=== PATIENT | female | born 1950 | race African-American/Black ===

== ENCOUNTER → 2018-02-03 | Outpatient (CLI) | payer OTHER ==
[~2018-02-03] MED LIST: ALLERGY10 M1 PO; AMARYL2 MG PO; ASPIRIN325 PO; CELEXA20 MG PO; CIPRO500 MG PO; COLACE100 MG PO; COLLAGEN SUPPLEMENT PO; COREG25 MG PO; COZAAR 50 MG TA50 M2 PO; HYDROCODON-ACE1 EAC5 PO; KLOR-CON SPRIN10 MEQ PO; LASIX 20 MG TAB20 MG PO; METFORMIN HCL500 MG PO; MILK OF MA2400 MG/10 PO; MOBIC15 MG PO; NAPROSYN500 MG PO; NEPHROCAPS SOFT1 CAP PO; NEURONTIN 300300 M1 PO; OXYCODONE HCL 55 MG PO; PERCOCET PO; SYNTHROID137 MC1 PO; XARELTO10 MG PO; ZANAFLEX4 MG PO
--- NOTE | 2018-03-04 13:42 | PAINCON ---
[address] [address] PAIN MANAGEMENT CONSULTATION Name: BOB BLAIR [id number] Admission: 02/03/18 Attend Phys: Mercedes Pino MD Discharge: Date of : 54 Report #: [id number] THIS REPORT FOR: //name// CC: SHIVA CHURCHILL DO Shiva Pino DATE OF SERVICE: 02/03/2018 CHIEF COMPLAINT: Chronic knee pains, left and right. FOLLOWUP HISTORY: The patient is a 67-year-old female who has been referred to the pain clinic for evaluation of chronic pain involving her knees. The patient states that she did have a right knee surgery. She notes that she has changed her gait as a result of that. She feels that she is putting more weight on the left side. She notes that because of this, she is having left hip pain and still has pain and discomfort on the right side in spite of the past surgical intervention. She notes that movements exacerbate the pain. Remaining in 1 position too long can be problematic as well. She notes that rest can be helpful in regards to the pain. The patient does have a history of diabetes. She has had a gastric bypass. ALLERGIES: No known drug allergies. CURRENT MEDICATIONS: Metformin 1000 mg b.i.d., gabapentin 300 mg at bedtime, glimepiride 2 mg at bedtime, citalopram 20 mg, losartan 50 mg b.i.d., Coreg 25 mg b.i.d., levothyroxine 137 mcg q.a.m., temazepam 30 mg p.r.n., tizanidine 4 mg p.r.n., complex vitamin B, Naprosyn p.r.n., collagen 6 times daily for hair, nails, and skin. PAST MEDICAL HISTORY: 1. Congestive heart failure. 2. Nonischemic cardiomyopathy. 3. Hypertension. 4. Hyperlipidemia. 5. Obesity. 6. Diabetes. 7. History of syncope. 8. Chronic knee pain, osteoarthritis of knees. 9. Left bundle branch block. 10. History of anemia. PAST SURGICAL HISTORY: Cholecystectomy in 1989, hysterectomy in 1992, gastric bypass in 2002, and right knee surgery in 2017. SOCIAL HISTORY: She is retired, has not worked for [address] [place] [address] PAIN MANAGEMENT CONSULTATION Name: BOB BLAIR Room: [facility]#: [id number] Admission: 02/03/18 Attend Phys: Mercedes Pino MD Discharge: Date of : 54 Report #: [id number] REVIEW OF SYSTEMS : Review of systems questionnaire twelve-point, recent weight changes, fatigue, weakness, headaches, chronic sinus problems, shortness of breath from walking on the flat, swelling in the feet, ankles and hands, frequent diarrhea, awakes to urinate, joint pain, joint stiffness, weakness of muscles and joints, muscle pain and cramps, back pain, difficulty walking, changes in hair and nails, recurrent lightheadedness, dizziness, depression, insomnia, and anemia. LABORATORY DATA: No laboratory involving the back or the knees available at the time of our interview. PAIN CLINIC ASSESSMENT: 1. Height 5 feet 6 inches, weight 260 pounds, BMI is 41. 2. History of osteoarthritis/rheumatoid arthritis: The patient does have osteoarthritis of her knees and has had surgery on the left and is contemplating knee surgery on the right. 3. Vital signs: Blood pressure 153/70, heart rate 83, respiratory rate 16, room air saturation 97%, temperature 98.6. 4. Pain intensity: 11/29. 5. Fall risk: The patient has not fallen in the last 3 months. 6. Blood thinner: The patient is not on a blood thinning agent. 7. History of hypertension: The patient is being treated for hypertension. 8. Opioid therapy greater than 6 months: The patient is not on opioid therapy regimen. 9. Risk assessment tool. 10. Functional assessment tool: Rated as 53/70 indicating significant impact on her daily living secondary to the pain. 11. Recreational drug use: The patient denies use of recreational drugs. 12. Tobacco: The patient denies use of tobacco. 13. Alcohol: The patient denies use of alcoholic beverages. PHYSICAL EXAMINATION: GENERAL: The patient is a well-developed white female. She appears her stated age. She is alert and oriented x 3. Her speech is fluent. HEENT: Normocephalic, atraumatic. Extraocular eye muscles intact. Sclerae nonicteric. Hearing generally within normal limits. Mucous membranes are moist. NECK: Without JVD or bruits. LUNGS: Clear to auscultation without rhonchi or rales. ABDOMEN: Protuberant. EXTREMITIES: Upper extremity muscle strength is judged to be 5/5 for the major muscle groups. Muscle strength is symmetrical. Muscle bulk is symmetrical. Deep tendon reflexes are +1 at the biceps. MUSCULOSKELETAL: Without significant scoliosis, kyphosis or lordosis. The patient complains of pain and discomfort involving the [place] [address] PAIN MANAGEMENT CONSULTATION Name: BOB BLAIR [id number] Admission: 02/03/18 Attend Phys: Mercedes Pino MD Discharge: Date of : 54 Report #: [id number] reflexes absent. Patellar reflexes absent. Left side, patellar reflex +1 and ankle reflex +1. The patient states that her gait has changed. She walks with a slight antalgic gait favoring her right knee. She notes a stabbing sensation in the left hip area as well as in the mid back at the L4-L5 area near the left posterior superior iliac spine area as well as some discomfort down in the right calf. IMPRESSION: 1. Right knee pain as well as left hip pain and discomfort. 2. Hypothyroidism due to Melvi's thyroiditis. 3. Vitamin D deficiency. 4. Primary insomnia. 5. Type 2 diabetes. 6. Essential hypertension. 7. Iron deficiency anemia. RECOMMENDATIONS: We discussed treatment options with the patient. Risks and benefits of a nonsteroidal anti-inflammatory were discussed. The patient does have some problems with her GI tract. We will try Mobic and note its efficacy. Hopefully, she will find that this medication is helpful and we will glean benefit from this. She will stop taking the medication if she noticed some worsening of her pain and discomfort. We will provide the patient with hydrocodone #10 one p.o. t.i.d. or 1 p.o. q.4-6h. p.r.n. for pain. The patient may need to follow up with her orthopaedic doctor for treatment. We would like to thank you for letting us participate in her care. We hope she continues to improve. <ELECTRONICALLY SIGNED> By: Mercedes Pino MD 03/04/18 1342 [id number]. Isaak Pino MD /[facility]
== END ==
LOC: M.PC 02:15
DX: M54.5 Low back pain (principal); M25.552 Pain in left hip

== ENCOUNTER → 2018-04-23 | Outpatient (CLI) | payer OTHER ==
--- NOTE | 2018-05-08 08:37 | PAINCON ---
[address] [address] PAIN MANAGEMENT CONSULTATION Name: BOB BLAIR Room: [facility] Ludwin#: [id number] Admission: 04/23/18 Attend Phys: Mercedes Pino MD Discharge: Date of : 54 Report #: [id number] THIS REPORT FOR: //name// CC: Consuelo Pino DATE OF SERVICE: 04/23/2018 PRIMARY CARE PHYSICIAN: Consuelo Wilson DO FOLLOWUP COMPLAINT: Here for medication renewal. FOLLOWUP HISTORY: The patient is a 67-year-old female who has been followed in the Pain Clinic because of chronic pain. She has pain and discomfort involving her knees. She has had knee surgery on the right side. Continues to have pain, which is somewhat problematic. She has been using Naprosyn. She feels that worked better than Mobic. Does have some problems with sleep. Feels that use of her medication at bedtime help promote sleep. Still walks with a slight limp secondary to pain and discomfort. Notes that her pain is worse when she remains in a position for a prolonged time. Feels that her medication as well as rest are helpful. Feels that she is having more pain in her left hip secondary to favoring her right knee. Rates her pain as a 4/10. The patient states that her diabetes is doing reasonably well. ALLERGIES: No known drug allergies. CURRENT MEDICATIONS: Metformin 1000 mg b.i.d., gabapentin 300 mg at bedtime, glimepiride 2 mg at bedtime, citalopram 20 mg, losartan 50 mg b.i.d., Coreg 25 mg b.i.d., levothyroxine 137 mcg q.a.m., temazepam 30 mg p.r.n., tizanidine 4 mg p.r.n., complex vitamins including D, Naprosyn p.r.n., collagen 6 times daily for hair, nails and skin. PAST MEDICAL HISTORY: 1. Congestive heart failure. 2. Nonischemic cardiomyopathy. 3. Hypertension. 4. Hyperlipidemia. 5. Obesity. 6. Diabetes. 7. History of syncope. 8. Chronic knee pain/osteoarthritis of the knees. 9. Left bundle-branch block. 10. History of anemia. PAIN CLINIC ASSESSMENT: 1. Height 5 feet 6 inches, weight 265 pounds, BMI is 45[place] [address] PAIN MANAGEMENT CONSULTATION Name: BOB BLAIR Room: [facility]#: [id number] Admission: 04/23/18 Attend Phys: Mercedes Pino MD Discharge: Date of : 54 Report #: [id number] treated for arthritic changes in her knee. 2. VITAL SIGNS: Blood pressure 166/76, heart rate 83, respiratory rate 16, room air saturation 96%, temperature 98.4. 3. Pain intensity 12/30. 4. Fall risk. The patient has not fallen in the last 3 months. 5. Blood thinner. The patient is not on a blood thinning medication. 6. Hypertension. The patient is being treated for hypertension. 7. Opioid therapy greater than 6 months. The patient is not on opioid therapy on a regular regimen. 8. Risk assessment tool. 9. Functional assessment tool rated 53/70 indicating significant impact on daily living. 10. Recreational drug use: The patient denies use of recreational drugs. 11. Tobacco: The patient denies use of tobacco. 12. Alcohol: The patient denies use of alcoholic beverages. PHYSICAL EXAMINATION: GENERAL: The patient is a well-developed, well-nourished white female, appears her stated age. She is slightly obese. She is alert and oriented x 3. Her speech is fluent. HEENT: Normocephalic, atraumatic. Extraocular eye muscles intact. Sclerae nonicteric. Hearing within normal limits. Mucous membranes are moist. NECK: Without JVD or bruits. LUNGS: Clear to auscultation without rhonchi or rales. ABDOMEN: Nontender. EXTREMITIES: The upper muscle of upper body, 5/5 for the major muscle groups. Muscle strength is symmetrical in the upper extremity. Deep tendon reflexes are +1 at the biceps. MUSCULOSKELETAL: Without kyphosis, scoliosis or lordosis. The patient complains of pain and discomfort involving her right knee. Patellar reflexes are absent. This is on the right side. The patient still has a slight antalgic gait favoring her right knee. Complains of a stabbing sensation involving her left hip and mid back area. IMPRESSION: 1. Right knee pain as well as left hip pain with discomfort. 2. Hypothyroidism due to Melvi's thyroiditis. 3. Vitamin C deficiency. 4. Primary insomnia. 5. Type 2 diabetes. 6. Essential hypertension. 7. Iron deficiency anemia. RECOMMENDATIONS: We discussed treatment options with the patient. At this juncture, we will renew the patient's [place] medication. She has been given a script for one month and a followup script for the next [place] [address] PAIN MANAGEMENT CONSULTATION Name: BOB BLAIR [facility] [id number] Admission: 04/23/18 Attend Phys: Mercedes Pino MD Discharge: Date of : 54 Report #: [id number] Naprosyn has been more effective than Mobic. She would like to continue that nonsteroidal anti-inflammatory medication. Feels that the gabapentin is helpful at bedtime, we will continue with that. The patient has also found Zanaflex helpful. A script for her medications have been rewritten. The patient will continue to take her medications as prescribed. She will follow up in about 2 weeks. We would like to thank you for letting us participate in her care. The patient is also undergoing surgery/oral surgery with a number of dentist. <ELECTRONICALLY SIGNED> By: Mercedes Pino MD 05/08/18 0837 [id number]. Isaak Pino MD /[facility]
== END ==
LOC: M.PC 02:14
DX: M25.561 Pain in right knee (principal); E11.9 Type 2 diabetes mellitus without complications; I10 Essential (primary) hypertension; E03.9 Hypothyroidism, unspecified; M25.552 Pain in left hip; G89.29 Other chronic pain; E54 Ascorbic acid deficiency; D50.9 Iron deficiency anemia, unspecified; G47.00 Insomnia, unspecified; Z79.899 Other long term (current) drug therapy

== ENCOUNTER → 2018-06-18 | Outpatient (CLI) | payer OTHER ==
--- NOTE | 2018-07-06 10:00 | PAINCON ---
[address] [address] PAIN MANAGEMENT CONSULTATION Name: BOB BLAIR Room: [facility] JAMAL Mascorro#: [id number] Admission: 06/18/18 Attend Phys: Mercedes Pino MD Discharge: Date of : 54 Report #: [id number] THIS REPORT FOR: //name// CC: Consuelo Pino DATE OF SERVICE: 06/18/2018 FOLLOWUP COMPLAINT: Here for medication renewal. FOLLOWUP HISTORY: The patient is a 67-year-old female who has been followed in the pain clinic because of chronic pain. She has had a right knee replacement. Also, has right hip pain. Notes that after walking her dog, she stepped off the curb. Notes a worsening of pain and discomfort in her right side. Usually her left side is that which is most problematic. She has had no falls since we saw her last. Had a right total knee placement about 2016. Rates her pain as a 3/10 today. Notes that the weather has changed. It has gotten colder. She usually has pain in her rating of 5-6. She oftentimes uses tizanidine. Uses half a pill on some occasions. If she takes the entire pill, she might be a little bit sleepy. Feels that her medications of hydrocodone are helpful, but would feel that she could get more accomplished if she were to have a second pill available. She denies any problems with the medications. No problems with thinking clearly. She continues to use the meloxicam on occasion p.r.n. Notes greater than 50% improvement in her pain with use of her current medical regimen. ALLERGIES: No known drug allergies. MEDICATIONS: Metformin 1000 mg b.i.d., gabapentin 300 mg at bedtime, glimepiride 2 mg at bedtime, citalopram 20 mg, losartan 50 mg b.i.d., Coreg 25 mg b.i.d., levothyroxine 137 mcg q.a.m., temazepam 30 mg p.r.n., tizanidine 4 mg p.r.n., complex vitamins including vitamin D, Naprosyn p.r.n., collagen 6 times daily for hair, nails and skin. PAIN CLINIC ASSESSMENT AND PQRS. 1. The patient has some osteoarthritic changes involving her right knee, it has been replaced. The patient is not being treated for osteoarthritis. 2. Height 5 feet 6 inches, weight 263 pounds, BMI is 42.5. 3. Vital signs: Blood pressure 151/98, heart rate 76, respiratory rate 16, room air saturation 97%, temperature 98.4. Pain intensity 11/29. 4. Fall history: The patient has not fallen in the last 3 months. She did step off a curb. Noticed some increased pain in the right lateral portion of her knee and in the area of the right tensor fascia marina. 5. Blood thinner. The patient is not on a blood thinning medication. 6. Hypertension. 7. Opioid medications greater than 6 weeks, received them [place] [address] PAIN MANAGEMENT CONSULTATION Name: BOB BLAIR Room: [facility]#: [id number] Admission: 06/18/18 Attend Phys: Mercedes Pino MD Discharge: Date of : 54 Report #: [id number] 8. Risk assessment tool, low for opioid use. 9. Functional assessment tool. 10. Recreational drug use. 11. Tobacco: The patient denies use of tobacco. 12. Alcoholic beverage. The patient denies use of alcoholic beverages. PHYSICAL EXAMINATION: GENERAL: The patient is a well-developed, well-nourished, and obese white female. Appears her stated age. She is alert and oriented x 3. Affect is appropriate. Speech is fluent. HEENT: Normocephalic, atraumatic. Extraocular eye muscles intact. Hearing is within normal limits. Mucous membranes are moist. NECK: Without JVD or bruits. LUNGS: Clear to auscultation without rhonchi or rales. ABDOMEN: Nontender. Bowel sounds positive, protuberant. EXTREMITIES: Upper muscle strength is judged to be 5/5 for the major muscle groups. Muscle strength is symmetrical in the upper extremities. Has some increased discomfort in the low back area. MUSCULOSKELETAL: Without kyphosis, scoliosis or lordosis. The patient is complaining of pain and discomfort that radiates down the lateral portion of her right knee, which has been replaced and soreness in the area of the tensor fascia marina. Usually the left leg is more problematic. Does walk with a slight locking gait secondary to discomfort. IMPRESSION: 1. Right knee pain and left hip pain with discomfort. 2. Hypothyroidism due to Melvi's thyroiditis. 3. Vitamin C deficiency. 4. Primary insomnia. 5. Type 2 diabetes. 6. Essential hypertension. 7. Iron deficiency anemia. RECOMMENDATIONS: We discussed treatment options with the patient. We will continue with her current medications. We will increase her opioid from 10 mg daily to 10 mg b.i.d. We have alerted the patient possible complications and use of opioid medications. They could become less effective secondary to tolerance. I explained to the patient that patient can develop a dependence on these medications. Overall, she feels that the medications are helpful and allow her to engage in activity, she would not be able to without their use. She would like to have her medications continued. She is thinking clearly, they do not alter her sensorium, keeps [place] [address] PAIN MANAGEMENT CONSULTATION Name: BOB BLAIR Room: [facility]#: [id number] Admission: 06/18/18 Attend Phys: Mercedes Pino MD Discharge: Date of : 54 Report #: [id number] We would like to thank you for letting us participate in her care. We hope she continues to improve. <ELECTRONICALLY SIGNED> By: Mercedes Pino MD 07/06/18 1000 [id number]. Isaak Pino MD /[facility]
== END ==
LOC: M.PC 04:55
DX: M25.561 Pain in right knee (principal); M25.552 Pain in left hip; E03.9 Hypothyroidism, unspecified; E11.9 Type 2 diabetes mellitus without complications; I10 Essential (primary) hypertension; E54 Ascorbic acid deficiency; D64.9 Anemia, unspecified; F51.01 Primary insomnia; E06.3 Autoimmune thyroiditis; Z79.899 Other long term (current) drug therapy

== ENCOUNTER → 2018-08-20 | Outpatient (CLI) | payer OTHER ==
--- NOTE | ~2018-08-20 | PAINCON ---
[facility] [address] [place] [address] PAIN MANAGEMENT CONSULTATION Name: BOB BLAIR [facility] [id number] Admission: 08/20/18 Attend Phys: Mercedes Pino MD Discharge: Date of : 54 Report #: [id number] THIS REPORT FOR: //name// CC: Consuelo Pino DATE OF SERVICE: 08/20/2018 FOLLOWUP COMPLAINT: "My legs were a little bit sore after a driving from [place]." FOLLOWUP HISTORY: The patient is a 67-year-old female who has been followed in the pain clinic because of chronic pain. She has pain involving her right knee. She has had a right knee replacement. Also, has some right hip discomfort. The patient notes that her pain increased somewhat after a prolonged drive to [place]. She states that she went with her dog. Because of the long ride she notes some increased pain and discomfort. Overall, she feels that the medications are helpful. Rates her pain as 3/10. She is not having any problems with confusion with use of her medications. She notes that because of the weather changes it has become more damp and cold. She has noted a worsening of her pain and discomfort. She feels that the Meloxicam is helpful. She is not having any problems with GI discomfort. Overall, feels that things are greater than 50% improved with use of her current medical regimen. She notes that there is some pain in the left hip because of the change in her gait. ALLERGIES: No known drug allergies. CURRENT MEDICATIONS: Metformin 1000 mg b.i.d., gabapentin 300 mg at bedtime, glimepiride 2 mg at bedtime, citalopram 20 mg, losartan 50 mg b.i.d., Coreg 25 mg b.i.d., levothyroxine 137 mcg q. a.m., temazepam 30 mg p.r.n., tizanidine 4 mg p.r.n., complex multivitamins including, Naprosyn p.r.n., collagen 6 times daily for hair, nails and skin. PAIN CLINIC ASSESSMENT/PQRS: 1. The patient has some arthritic changes involving her right knee. It has been replaced. The patient has some discomfort in the left hip as a result or change in her gait. The patient is not being treated for rheumatoid arthritis. 2. Height 5 feet 6 inches, weight 265 pounds, BMI is 42.8. 3. Vital Signs: Blood pressure 155/77, heart rate 80, respiratory rate 16, room air saturation 96%, temperature 98.4. 4. Pain intensity 11/29. 5. Fall risk. The patient has not fallen in the last 3 months. 6. Blood thinner. The patient is not on a blood thinning medication. 7. Hypertension. The patient is being treated for hypertension. 8. Opioid medications greater than 6 weeks. The patient did receives her medications from one source, [facility] [place] [address] PAIN MANAGEMENT CONSULTATION Name: BOB BLAIR Room: [facility]#: [id number] Admission: 08/20/18 Attend Phys: Mercedes Pino MD Discharge: Date of : 54 Report #: [id number] 9. Risk assessment tool, low for opioid use. 10. Functional assessment tool. 11. Recreational drug use. The patient denies use of recreational drug use. 12. Tobacco: The patient denies use of tobacco. 13. Alcohol. The patient rarely uses and drinks alcoholic beverages. PHYSICAL EXAMINATION: GENERAL: The patient is a well-developed, well-nourished white female. Appears her stated age. She is alert and oriented x 3. Affect is appropriate. Speech is fluent. HEENT: Normocephalic, atraumatic. Extraocular eye muscles intact. Sclerae nonicteric. Mucous membranes are moist. NECK: Without JVD or adenopathy. No bruits. LUNGS: Clear to auscultation without rhonchi or rales. ABDOMEN: Protuberant. Bowel sounds positive. EXTREMITIES: Upper extremity muscle strength is judged to be 5/5 for the major muscle groups in the upper extremity. There is asymmetry. Muscle bulk is symmetrical as well. MUSCULOSKELETAL: Without kyphosis, scoliosis or lordosis. The patient does complain of some pain and discomfort, which radiates down the lateral portion of her right knee. She has had some replacement in this area. There is some soreness around the knee area in the area of the tensor fascia marina. The patient has some left hip discomfort. She states that because of her waddling motion and change in gait that she has noted some pain in the hip secondary to this motion. IMPRESSION: 1. Right knee pain and left hip pain. 2. Hypothyroidism due to Melvi's thyroiditis. 3. Vitamin C deficiency. 4. Primary insomnia. 5. Type 2 diabetes. 6. Essential hypertension. 7. Iron deficiency anemia. RECOMMENDATIONS: We discussed treatment options with the patient. She feels that her medications are working reasonably well. She is not having problems with them. Keeps her medications in a guarded area. She is aware that opioid medications can be problematic and lead to addiction. The patient also is aware that chronic use of opioid medications they may cause some less of their effectiveness secondary to tolerance. Keeps her medications in a guarded area. I would like to continue with her medications. A script for her medications of [place] 10/325, tizanidine 4 mg t.i.d., Neurontin 300 mg at bedtime and Voltaren gel all have been rewritten. [facility] [address] [place] [address] PAIN MANAGEMENT CONSULTATION Name: BOB BLAIR Room: [facility]#: [id number] Admission: 08/20/18 Attend Phys: Mercedes Pino MD Discharge: Date of : 54 Report #: [id number] We would like to thank you for letting us participate in her care. We hope she continues to improve. By: [id number] [id number]. Isaak Pino MD /[facility]
== END ==
LOC: M.PC 03:45
DX: M25.561 Pain in right knee (principal); M25.562 Pain in left knee; E54 Ascorbic acid deficiency; G89.29 Other chronic pain; E11.9 Type 2 diabetes mellitus without complications; I10 Essential (primary) hypertension; D50.9 Iron deficiency anemia, unspecified; F51.01 Primary insomnia; E03.8 Other specified hypothyroidism; Z96.651 Presence of right artificial knee joint; Z79.84 Long term (current) use of oral hypoglycemic drugs; Z79.899 Other long term (current) drug therapy; Z79.891 Long term (current) use of opiate analgesic

== ENCOUNTER → 2018-10-13 | Outpatient (CLI) | payer OTHER ==
[~2018-10-13] MED LIST changes: +B-12 IM; +ZOLOFT25 MG PO
--- NOTE | ~2018-10-13 | PAINCON ---
[facility] [address] [place] [address] PAIN MANAGEMENT CONSULTATION Name: BOB BLAIR Room: [facility] BelindaMarlon#: [id number] Admission: 10/13/18 Attend Phys: Mercedes Pino MD Discharge: Date of : 54 Report #: [id number] THIS REPORT FOR: //name// CC: Consuelo Wilson DO Consuelo Pino DATE OF SERVICE: 10/13/2018 CHIEF COMPLAINT: Right knee and right hip pain. I would like to have her medications renewed. I am thinking about having some dental work. FOLLOWUP HISTORY: The patient is a 68-year-old female who has been followed in the pain clinic because of chronic pain. She has pain involving her right knee. Has had right knee replacement. Also, has some right hip discomfort. She has not had no new changes since we saw her last. She does complain of some stiffness and increased discomfort secondary to the change in the weather. Has pain in both knees, back and hips. Rates her pain as 4/10 at this juncture. Still feels that the current medications of hydrocodone, tizanidine, Naprosyn and Neurontin are beneficial. She has greater than 50% improvement in her pain with her current medical regimen. Keeps her medications in a guarded area. ALLERGIES: No known drug allergies. CURRENT MEDICATIONS: Metformin 1000 mg b.i.d., gabapentin 300 mg at bedtime, glimepiride 2 mg at bedtime, citalopram 20 mg, losartan 50 mg b.i.d., Coreg 25 mg b.i.d., levothyroxine 137 mcg, temazepam 30 mg, tizanidine 4 mg p.r.n., complex multivitamins, Naprosyn, collagen 6 times daily for hair, nails and skin. PAIN CLINIC ASSESSMENT/PQRS: 1. The patient has some arthritic changes involving her right knee. It has been replaced. The patient has some discomfort in her left hip as a result of changing in her gait. She has not been treated for rheumatoid arthritis. 2. Height 5 feet 6 inches, weight 262 pounds, BMI is 42.5. 3. Vital Signs: Blood pressure 155/92, heart rate 82, respiratory rate 16, room air saturation is 100%, temperature 98.1 4. Pain intensity score is a 4/10. 5. Fall risk. The patient has not fallen in the last 3 months. 6. Blood thinner. The patient is not on a blood thinning medication. 7. Hypertension. The patient is being treated for hypertension. 8. Opioids greater than 6 weeks. The patient receives her medications from one source, the pain clinic. 9. Risk assessment tool, low for opioid use. 10. Functional assessment tool. 11. Recreational drug use. The patient [place] [address] PAIN MANAGEMENT CONSULTATION Name: BOB BLAIR Room: [facility]#: [id number] Admission: 10/13/18 Attend Phys: Mercedes Pino MD Discharge: Date of : 54 Report #: [id number] 12. Tobacco: The patient denies use of tobacco. 13. Alcohol: The patient denies use of alcoholic beverages. PHYSICAL EXAMINATION: GENERAL: The patient is a well-developed, well nourished, somewhat obese white female. Appears her stated age. She is alert and oriented x 3. Speech is fluent. HEENT: Normocephalic, atraumatic. Extraocular eye muscles intact. Sclerae nonicteric. Mucous membranes are moist. NECK: Without adenopathy or JVD. The patient does have some caries in her dentures. She is going to undergo dental work with root canal as well as placement of crown and bridge is in the future. LUNGS: Clear to auscultation without rhonchi or rales. ABDOMEN: Nontender. Bowel sounds positive. EXTREMITIES: Upper extremity muscle strength is judged to be 5/5 for the major muscle groups in the upper extremity with symmetry muscle bulk is present. MUSCULOSKELETAL: Without kyphosis or lordosis, kyphosis, scoliosis or lordosis. The patient does have some pain and discomfort of pain that radiates down into her right knee. Has had replacement of the knee in this area. Has pain in the area of the tensor fascia marina. Has a somewhat waddling gait. IMPRESSION: 1. Right knee pain and left hip pain. 2. Hypothyroidism due to Melvi's thyroiditis. 3. Vitamin C deficiency. 4. Primary insomnia. 5. Type 2 diabetes. 6. Essential hypertension. 7. Iron deficiency anemia. RECOMMENDATIONS: We discussed treatment options with the patient. The patient feels that her medications are helpful. She feels that the hydrocodone is working reasonably well. Keeps her medications in a guarded area. Also, feels that the tizanidine muscle relaxant is beneficial. She is considering having dental work done in the near future. States that her dental situation deteriorated significantly last year. She is contemplating having some crowns placed as well as a bridge in the front upper area. A script for her medications have been written. She will call us if she has any concerns. We would like to thank you for letting us participate in her care. We hope she continues to improve. By: Lois: 10/13/18 1651 [id number]. Isaak Pino MD /faina
== END ==
LOC: M.PC 12:20
DX: M25.561 Pain in right knee (principal); M25.552 Pain in left hip; E03.9 Hypothyroidism, unspecified; E06.3 Autoimmune thyroiditis; E54 Ascorbic acid deficiency; E11.9 Type 2 diabetes mellitus without complications; I10 Essential (primary) hypertension; D50.9 Iron deficiency anemia, unspecified; G47.00 Insomnia, unspecified

== ENCOUNTER → 2018-11-30 | Outpatient (CLI) | payer OTHER | LOC: M.RAD 11-09 15:40 | DX: Z12.31 Encounter for screening mammogram for malignant neoplasm of breast (principal); E11.9 Type 2 diabetes mellitus without complications; M85.88 Other specified disorders of bone density and structure, other site; Z78.0 Asymptomatic menopausal state ==

== ENCOUNTER → 2018-12-17 | Outpatient (CLI) | payer OTHER ==
--- NOTE | ~2018-12-17 | PAINCON ---
[address] [address] PAIN MANAGEMENT CONSULTATION Name: BOB BLAIR Room: [facility] JAMAL Mascorro#: [id number] Admission: 12/17/18 Attend Phys: Mercedes Pino MD Discharge: Date of : 54 Report #: [id number] THIS REPORT FOR: //name// CC: Consuelo Pino DATE OF SERVICE: 12/17/2018 CHIEF COMPLAINT: Here for another injection and medication. HISTORY: The patient is a 68-year-old female who has been followed in the pain clinic because of chronic pain. She has pain in her knees as well as in her right hip. She has had some soreness in her low back area. She went to [place]. She visited her sister. She has a small Yorkie dog. Her dog was attacked by the neighbor dog. She was bitten. A second attack was launched on her other dog while she was in [place] as well. The second dog received 17 stitches. He is now vet. He has an infection. She was bitten in the hands and noted to be experiencing some swelling. States that she has been given some antibiotic by her primary physician. She notes some itching of her hands. Notes some swelling in her hands. Feels that is secondary to the dog bites. Has not noticed any redness creeping up into her hands. States that the attack dog was about 65 pounds and her dog was 10 pounds. She has returned today and would like to have her medications renewed. This is about day #4 of antibiotics. ALLERGIES: No known drug allergies. CURRENT MEDICATIONS: Metformin 100 mg b.i.d., gabapentin 300 mg at bedtime, glimepiride 2 mg at bedtime, citalopram 20 mg, losartan 50 mg b.i.d., Coreg 25 mg b.i.d., levothyroxine 137 mcg, temazepam 30 mg, tizanidine 4 mg, complex medical vitamins, Naprosyn, collagen 6 times daily to help with hair, nail and skin growths. PAIN CLINIC ASSESSMENT/PQRS: 1. The patient has some pain and discomfort involving her right hip as well as her right knee. The patient has some discomfort in the left hip as well. The patient is not being treated for rheumatoid arthritis. 2. Height 5 feet 6 inches, weight 263 pounds, BMI is 42. 3. Vital Signs: Blood pressure 145/69, heart rate 87, respiratory rate 16, room air saturation 98%, temperature 98.3. 4. Pain intensity 4-5/10. 5. Fall risk. The patient has not fallen in the last 3 months. 6. Blood thinner. The patient is not on a blood thinning medication. 7. Hypertension. The patient is being treated for hypertension. 8. Opiates greater than 6 weeks. The patient receives her medications from one source, the pain clinic. 9. Risk assessment tool, [place] [address] PAIN MANAGEMENT CONSULTATION Name: BOB BLAIR Room: [facility] AMARIS Ludwin#: [id number] Admission: 12/17/18 Attend Phys: Mercedes Pino MD Discharge: Date of : 54 Report #: [id number] 10. Functional assessment tool. 11. Recreational drug use. The patient denies use of recreational drug use. 12. Tobacco: The patient denies use of tobacco. 13. The patient rarely drinks alcoholic beverages. PHYSICAL EXAMINATION: GENERAL: The patient is well developed, somewhat obese white female, appears her stated age. She is alert and oriented x 3. Her affect is appropriate. Speech is fluent. HEENT: Normocephalic, atraumatic. Extraocular eye muscles are intact. Sclerae nonicteric. Mucous membranes are moist. NECK: Without adenopathy or JVD. LUNGS: Clear to auscultation without rhonchi or rales. ABDOMEN: Nontender. Bowel sounds present. EXTREMITIES: Upper extremity muscle strength is judged to be 5-/5 for the major muscle groups in the upper extremity. MUSCULOSKELETAL: Without significant scoliosis, kyphosis or lordosis. The patient has some pain and discomfort in the right knee as well as in the right hip. Has discomfort in the area of the tensor fascia marina. Has a waddling gait. IMPRESSION: 1. Right knee and leg pain. 2. Left hip pain. 3. Hypothyroidism due to Melvi's thyroiditis. 4. Vitamin C deficiency. 5. Primary insomnia. 6. Type 2 diabetes. 7. Essential hypertension. 8. Iron deficiency anemia. 9. Recent bites in the hands from a dog attack on her dog in [place]. RECOMMENDATIONS: We discussed treatment options with the patient. At this juncture, we will continue with the patient's medications. A script for her medications have been written. She feels that the medications are helpful. We would like to continue their use. She does complain of some itching in her hands. She is having no problems with bleeding. Feels that it is just in the hands area of themselves. There is some swelling noted. There are a few lacerations in the dorsum of her hand. No outward signs of infection. We would recommend that the patient try a probiotic. This might be helpful in decreasing the likelihood that she will have GI complaints after the use of her antibiotic. We would also recommend that the patient contact her primary physician should she notice any swelling or fevers or anything that does not seem like it is going correctly. A script for her medications of tizanidine 4 mg 1 p.o. t.i.d., hydrocodone 10 mg 1 p.o. b.i.d. [place] [address] PAIN MANAGEMENT CONSULTATION Name: BLAIRBOB Room: [facility]#: [id number] Admission: 12/17/18 Attend Phys: Mercedes Pino MD Discharge: Date of : 54 Report #: [id number] We would like to thank you for letting us participate in her care. We hope she continues to improve. By: 1155 1841N. Isaak Pino MD /faina
== END ==
LOC: M.PC 12-08 10:30
DX: M25.561 Pain in right knee (principal); M25.552 Pain in left hip; E03.9 Hypothyroidism, unspecified; E11.9 Type 2 diabetes mellitus without complications; I10 Essential (primary) hypertension; D50.9 Iron deficiency anemia, unspecified; E06.3 Autoimmune thyroiditis; F51.01 Primary insomnia; G47.9 Sleep disorder, unspecified; E54 Ascorbic acid deficiency; W54.0XXA Bitten by dog, initial encounter

== ENCOUNTER → 2019-02-02 | Outpatient (CLI) | payer OTHER | LOC: M.CT 11:46 | DX: I25.10 Atherosclerotic heart disease of native coronary artery without angina pectoris (principal); J98.11 Atelectasis; Z88.8 Allergy status to other drugs, medicaments and biological substances ==

== ENCOUNTER → 2019-02-18 | Outpatient (CLI) | payer OTHER ==
[~2019-02-18] MED LIST changes: +COZAAR 25 MG TA25 MG PO; -COZAAR 50 MG TA50 M2 PO
--- NOTE | ~2019-02-18 | PAINCON ---
[address] [address] PAIN MANAGEMENT CONSULTATION Name: BOB BLAIR Room: [facility] AMARIS Ludwin#: [id number] Admission: 02/18/19 Attend Phys: Mercedes Pino MD Discharge: Date of : 54 Report #: [id number] THIS REPORT FOR: //name// CC: Consuelo Pino DATE OF SERVICE: 02/18/2019 CHIEF COMPLAINT: "Here for medications and I had a stent placed in my heart." HISTORY: The patient is a 68-year-old female who has been followed in the Pain Clinic. As you recall, she has pain involving her right knee as well as right hip pain. She recently had a heart attack. She did undergo a stent placement. She has noticed over a number of months since late last year that she has become more short of breath. States that over , she went to [place] to see her son. She stopped 3 times while in the airport because of shortness of breath. She did notice a rapid heart rate at times. She had recently noticed some increased problems with shortness of breath. States that she had difficulty walking her dogs. She had difficulty walking from her house to her car. She states that she was evaluated and was found to have a hemoglobin of 7. She states she has had a gastric bypass in the past. States she has had 3 colonoscopies. She declined a colonoscopy for evaluation of this situation. States that she had a gastric bypass in 2002. She has had problems with anemia per her report. She went to the [facility]. Hemoglobin being low, she was directed to go to the hospital for iron and transfusion. She states that in the emergency area, she did have a cardiac arrest. She was resuscitated. She has had imaging. She has some soreness in her right arm. She has some difficult veins to cannulate. She has a number of bruises on her right arm as well as her left arm. She states that her ejection fraction was 30-35%. She states that she has had a history of anemia in the past. This was back in December 2015 when she had her right knee replaced. She continues to undergo evaluation at this juncture. ALLERGIES: No known drug allergies. CURRENT MEDICATIONS: B complex and C #20-folic acid capsules, Coreg 25 mg to take with meals, cetirizine 10 mg, Colace 100 mg stool softener, gabapentin 300 mg at bedtime, Amaryl 2 mg, hydrocodone 10/325 one p.o. b.i.d., levothyroxine 137 mcg, Cozaar 50 mg, Glucophage 500 mg b.i.d., Naprosyn 500 mg, Zoloft 25 mg, tizanidine 4 mg t.i.d., B12 intramuscular weekly. PAIN CLINIC ASSESSMENT AND PQRS: 1. The patient has some discomfort involving her right hip as well as her right knee. She has had a knee replacement. The patient continues to have right hip discomfort. The patient is not being treated for rheumatoid arthritis. 2. Height 5 feet 6 inches, weight 264 pounds, BMI is 42. [address] [place] [address] PAIN MANAGEMENT CONSULTATION Name: BOB BLAIR Room: [facility]#: [id number] Admission: 02/18/19 Attend Phys: Mercedes Pino MD Discharge: Date of : 54 Report #: [id number] 3. Vital signs: Blood pressure 142/80, heart rate 75, respiratory rate 18, room air saturation 98%, temperature 98.5. 4. Pain intensity: 5/10. 5. Fall risk: The patient has not fallen in the last 3 months. 6. Blood thinner: The patient is not on a blood thinning medication. 7. Hypertension: The patient is being treated for hypertension. 8. Opioids greater than 6 weeks: The patient receives her medication from [facility] from [facility] Clinic. 9. Risk assessment tool: Low for opioid use. 10. Functional assessment tool. 11. Recreational drug use: The patient denies use of recreational drugs. 12. Tobacco: The patient denies use of tobacco. 13. Alcohol: The patient rarely drinks alcoholic beverages. PHYSICAL EXAMINATION: GENERAL: The patient is a well-developed, well-nourished, white female. She is obese. She appears her stated age. She is alert and oriented x 3. Her affect is appropriate. Speech is fluent. HEENT: Normocephalic, atraumatic. Extraocular eye muscles intact. Sclerae nonicteric. Mucous membranes are moist. NECK: Without adenopathy or JVD. LUNGS: Generally clear. ABDOMEN: Nontender. HEART: Regular rate. MUSCULOSKELETAL: Upper extremity muscle strength is judged to be 5-/5 for the major muscle groups. The patient is without significant scoliosis, kyphosis or lordosis. The patient has some pain and discomfort in her right knee, which is well healed as well as some right hip discomfort. She has a somewhat waddling gait. IMPRESSION: 1. Recent myocardial infarct with stent placement. 2. Ejection fraction 30-35%. 3. Right knee and leg pain. 4. Left hip pain. 5. Hypothyroidism due to Melvi's thyroiditis. 6. Vitamin C deficiency. 7. Primary insomnia. 8. Type 2 diabetes. 9. Essential hypertension. 10. Iron deficiency anemia. RECOMMENDATIONS: We discussed treatment options with the patient. The patient has had a somewhat tumultuous set of events. She has been found to have some narrowing in her heart. She has undergone stent placement. She has had iron and hemoglobin transfusion. The patient also had an episode requiring [facility] [address] [place] [address] PAIN MANAGEMENT CONSULTATION Name: BOB BLAIR Room: [facility] Ludwin#: [id number] Admission: 02/18/19 Attend Phys: Mercedes Pino MD Discharge: Date of : 54 Report #: [id number] resuscitation in the Emergency Room. The patient feels that she is having more pain in her right arm. This is the area which was catheterized in the right radial area. Also, she has a swelling about 1 inch x 1/2 inch wide which appears to have been the area for attempted cannulation of IV. There are no signs of infection. The patient has some significant ecchymosis in the dependent area of her right forearm. She has some ecchymotic areas on the left arm as well. We have discussed the options. The patient feels that her pain has increased. She would like to have a few more hydrocodone to take over this month while she recovers from her ordeal. We will provide the patient with 75 tablets this month. That is an additional 15 tablets to help with this pain she is experiencing from her recent treatments. We will return to the normal amount the following month and thereafter. We again have discussed the benefits and risk of opioid medications. They can be helpful initially, but can be less effective as time progresses secondary to tolerance. We will continue with her medications. She will call us if she has any concerns. We would like to thank you for letting us participate in her care. We hope she continues to improve. By: 0927 1021N. Isaak Pino MD /nt
== END ==
LOC: M.PC 02-11 09:40
DX: Z48.812 Encounter for surgical aftercare following surgery on the circulatory system (principal); M25.561 Pain in right knee; M25.552 Pain in left hip; E06.3 Autoimmune thyroiditis; E54 Ascorbic acid deficiency; E11.9 Type 2 diabetes mellitus without complications; I10 Essential (primary) hypertension; D50.9 Iron deficiency anemia, unspecified; Z95.818 Presence of other cardiac implants and grafts

== ENCOUNTER → 2019-04-15 | Outpatient (CLI) | payer OTHER ==
[~2019-04-15] MED LIST changes: +B12INJ IM; +BENADRYL25 MG PO; +BRILINTA90 MG PO; +ENTRESTO 49 MG1 EACH PO; +LIPITOR40 MG PO; +POTASSIUM20 PO; +RESTORIL30 MG PO; +SERTRALINE HCL50 MG PO; +VITAMIN D3 PO; -ZOLOFT25 MG PO
--- NOTE | ~2019-04-15 | PAINCON ---
[address] [address] PAIN MANAGEMENT CONSULTATION Name: BOB BLAIR Room: [facility] JAMAL Mascorro#: [id number] Admission: 04/15/19 Attend Phys: Mercedes Pino MD Discharge: Date of : 54 Report #: [id number] THIS REPORT FOR: //name// CC: Consuelo Pino DATE OF SERVICE: 04/15/2019 CHIEF COMPLAINT: Here for medication management. HISTORY: The patient is a 68-year-old female who has been followed in the pain clinic because of chronic pain. She has pain in her right knee. She is status post myocardial infarct with stent placement. She is doing reasonably well. She does have some pain and discomfort in her left hip. She attributes that to the way she is ambulating. Because of her right knee pain she does walk with a change gait. She oftentimes leans to her left while she is sitting. She feels that this might be part of problem. She has been dizzy. She rates her pain as 4. This is a bit higher than that traditionally. She and a friend went to the [employer] sale. At this sale, retired can get one-half off. She does have a truck. States that climbing up and down in the truck may have exacerbated her pain and discomfort as well. She would like to have her medications renewed. She has taken the medication as prescribed. Had a gastric bypass in 2002. Has an ejection fraction is 30-35% since her myocardial infarct. ALLERGIES: No known drug allergies. CURRENT MEDICATIONS: B complex and C, folic acid capsules, Coreg 25 mg, cetirizine 10 mg, Colace 100 mg, stool softener, gabapentin 300 mg at bedtime, Amaryl 2 mg, hydrocodone 10/325 one p.o. b.i.d., levothyroxine 137 mcg, Cozaar 50 mg, Glucophage 50 mg b.i.d., Naprosyn 500 mg, Zofran 25 mg, tizanidine 4 mg t.i.d., B12 intramuscular weekly. PAIN CLINIC ASSESSMENT/PQRS. 1. The patient has some discomfort involving her right hip as well as her right knee. Has had a knee replacement in 2015. The patient is not being treated for rheumatoid arthritis. 2. Height 5 feet 6 inches, weight 263 pounds, BMI is 42.4. 3. VITAL SIGNS: Blood pressure 131/71, heart rate 76, respiratory rate 16, room air saturation 97%, temperature is 97.5. 4. Pain intensity 4/10. 5. Fall history: The patient has not fallen in the last 3 months. 6. Blood thinner. The patient is on a blood thinning medication. 7. Hypertension. The patient is being treated for hypertension. 8. Opioids greater than 6 weeks. The patient [facility] [place] [address] PAIN MANAGEMENT CONSULTATION Name: BOB BLAIR Room: [facility]#: [id number] Admission: 04/15/19 Attend Phys: Mercedes Pino MD Discharge: Date of : 54 Report #: [id number] 9. Risk assessment tool, low for opioid use. 10. Functional assessment tool. 11. Recreational drug use. The patient denies use of recreational drugs. 12. Tobacco: The patient denies use of tobacco. 13. Alcohol: The patient rarely drinks alcoholic beverages. PHYSICAL EXAMINATION: GENERAL: The patient is a well-developed, well-nourished white female. Appears her stated age. She is slightly obese. She is alert and oriented x 3. Her affect is appropriate. Speech is fluent. HEAD, EYES, EARS, NOSE, AND THROAT: Normocephalic, atraumatic. Extraocular eye muscles intact. Sclerae nonicteric. Mucous membranes are moist. NECK: Without adenopathy or JVD. ABDOMEN: Nontender. HEART: Regular rate. MUSCULOSKELETAL: Without significant scoliosis, kyphosis or lordosis. Upper extremity muscle strength judged to be 5-/5 for the major muscle groups in the upper extremity. The patient is without significant scoliosis, kyphosis, or lordosis. Has some discomfort in her right knee. Does walk with a change gait since the knee replacement. Has a somewhat waddling fashion to the gait. Complains of some left hip pain, particularly while sitting and leans to her left side while sitting. IMPRESSION: 1. Recent myocardial infarct with stent placement. 2. Ejection fraction of 30-35%. 3. Right knee and leg pain. 4. Left hip pain. 5. Hypothyroidism due to Melvi's thyroiditis. 6. Vitamin C deficiency. 7. Primary insomnia. 8. Type 2 diabetes. 9. Essential hypertension. 10. Iron deficiency anemia. RECOMMENDATIONS: We discussed treatment options with the patient. At this juncture, we will continue with her medications. She feels that the medications are helpful. She feels that she sometimes has more pain and two hydrocodone medications are not helpful. We will increase this to an additional 15 tablets per month. Hopefully, if she should have pain, which is problematic, she can have an additional pain, to take almost 15 days during the month when it is more problematic. She feels that the medication is helpful. She is not having any problems with mentation. She keeps her medications in a guarded area. We explained to her the problems with opioid medications is one of tolerance. Prolonged use may cause development of tolerance and less effectiveness. The patient has found the medications effective. She will call us [place] [address] PAIN MANAGEMENT CONSULTATION Name: BOB BLAIR Room: [facility]#: [id number] Admission: 04/15/19 Attend Phys: Mercedes Pino MD Discharge: Date of : 54 Report #: [id number] concerns. A script for her medications have been written. Hydrocodone 10/325 one p.o. 75 tablets per month as well as continued use of Zanaflex 4 mg 1 p.o. t.i.d. for muscle spasms. We would like to thank you for letting us to participate in her care. We hope she continues to improve. We will continue with her complex medical management using opioid medications. By: [id number] 1528N. Isaak Pino MD /JOSE
== END ==
LOC: M.PC 05:08
DX: M25.561 Pain in right knee (principal); M79.604 Pain in right leg; E03.9 Hypothyroidism, unspecified; M25.552 Pain in left hip; I10 Essential (primary) hypertension; D50.9 Iron deficiency anemia, unspecified; E54 Ascorbic acid deficiency; F51.01 Primary insomnia; E06.3 Autoimmune thyroiditis; E11.9 Type 2 diabetes mellitus without complications

== ENCOUNTER → 2019-06-10 | Outpatient (CLI) | payer OTHER ==
--- NOTE | 2019-06-14 09:16 | PAINCON ---
[address] [address] PAIN MANAGEMENT CONSULTATION Name: BOB BLAIR Room: [facility] Ludwin#: [id number] Admission: 06/10/19 Attend Phys: Mercedes Pino MD Discharge: Date of : 54 Report #: [id number] THIS REPORT FOR: //name// CC: Consuelo Pino DATE OF SERVICE: 06/10/2019 CHIEF COMPLAINT: Low back pain. Here for medication renewal. HISTORY: The patient is a 68-year-old female who has been followed in the pain clinic. She has a history of low back pain. Notes that she has pain and discomfort in her low back and down into her knees. Recently, started a new job. She is working at [employer] in the [facility]. Notes that forward bending to reach and get things from front of the cabinet can exacerbate pain and discomfort she is having. She feels that a component of this might be that she has not used to this strenuous type of work. She has some concerns that she is having some shaking/tremulousness involving her hands. States that she was holding an item of fluid a few days ago and noticed her hands were shaking and split some of this onto her clothing. 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 Notes that she has increased bruising. She has been taking a nonsteroidal anti-inflammatory medication in conjunction with her Brilinta 90 mg twice a day for platelet control. Notes her pain is worse with activity, walking, sitting, standing, bending, and lifting. ALLERGIES: No known drug allergies. CURRENT MEDICATIONS: Lipitor 40 mg, B complex, Coreg 25 mg b.i.d., Benadryl 25 mg, Colace 100 mg, Lasix 20 mg, Neurontin 300 mg at bedtime, Amaryl 2 mg at bedtime, hydrocodone/acetaminophen 10/325, Synthroid 137 mcg, potassium 20 mEq, Entresto 49/51 mg tablets, Zoloft 50 mg, Restoril 30 mg, Brilinta 90 mg b.i.d., Zanaflex 4 mg t.i.d., vitamin B12 1000 mcg intramuscular monthly, vitamin D3 1000 units daily. PAIN CLINIC ASSESSMENT AND PQRS: 1. The patient has pain and discomfort involving her right hip as well as her right knee. Has some pain in her low back area as well. The patient is not being treated for rheumatoid arthritis. 2. Height 5 feet 6 inches, weight 265 pounds, BMI is 42. 3. Vital Signs: Blood pressure 134/69, heart rate 66, respiratory rate 16, room air saturation 97%. 4. Pain intensity is 5/10. 5. Fall history. The patient has not fallen in the last 3 months. 6. Blood thinner. The patient is taking Brilinta. 7. Hypertension. The patient is being treated for hypertension. 8. Opioids greater than 6 weeks. The [place] [address] PAIN MANAGEMENT CONSULTATION Name: BOB BLAIR [id number] Admission: 06/10/19 Attend Phys: Mercedes Pino MD Discharge: Date of : 54 Report #: [id number] source, the pain clinic. 9. Risk assessment tool, low for opioid use. 10. Functional assessment tool. 11. Recreational drug use, the patient denies use of recreational drugs. 12. Tobacco: The patient denies use of tobacco. 13. Alcohol: The patient rarely drinks alcoholic beverages. PHYSICAL EXAMINATION: GENERAL: The patient is a well-developed, well-nourished, white female. She is obese. She is alert and oriented x 3. Her affect is appropriate. Speech is fluent. HEENT: Normocephalic, atraumatic. Extraocular eye muscles intact. Sclerae nonicteric. Mucous membranes are moist. NECK: Without adenopathy or JVD. ABDOMEN: Nontender. Bowel sounds present. HEART: Regular rate. MUSCULOSKELETAL: The patient complains of upper extremity muscle soreness and rates muscle strength as 5-/5 for the major muscle groups in the upper extremity. The patient has pain and discomfort in the lower portion of her back, particularly with forward bending, which is what she does quite a bit of work at this juncture at her new job. The patient without significant scoliosis, kyphosis, or lordosis. The patient has some discomfort in her right knee. Walks with an antalgic gait since the knee replacement. Has a waddling fashion to her gait. IMPRESSION: 1. Recent myocardial infarct with stent placement. 2. Ejection fraction 30-35%. 3. Right knee and leg pain. 4. Left hip pain. 5. Hypothyroidism due to Melvi's thyroiditis. 6. Vitamin C deficiency. 7. Primary insomnia. 8. Type 2 diabetes. 9. Essential hypertension. 10. Iron deficiency anemia. RECOMMENDATIONS: We discussed treatment options with the patient. At this juncture, we will continue with her medications. She finds that the medications are helpful. The patient's back pain, I think is secondary to muscle soreness. Hopefully, as time goes by, her muscles will acclimate to her new activity. A script for her medications of hydrocodone 10/325 1 p.o. t.i.d. has been rewritten. She will also continue with tizanidine 4 mg 1 p.o. t.i.d. to help with muscle spasms. We would like to thank you for letting us participate in [place] [address] PAIN MANAGEMENT CONSULTATION Name: BOB BLAIR Room: [facility] BelindaMarlon#: [id number] Admission: 06/10/19 Attend Phys: Mercedes Pino MD Discharge: Date of : 54 Report #: [id number] continue with her pain control using complex medical management and opioids. She will call us if she has any concerns. <ELECTRONICALLY SIGNED> By: Mercedes Pino MD 06/14/19 0916 1420 [id number] Pino MD /JOSE
== END ==
LOC: M.PC 05:03
DX: Z76.0 Encounter for issue of repeat prescription (principal); I10 Essential (primary) hypertension; E06.3 Autoimmune thyroiditis; E11.9 Type 2 diabetes mellitus without complications; D50.9 Iron deficiency anemia, unspecified; I25.2 Old myocardial infarction; E54 Ascorbic acid deficiency; G47.00 Insomnia, unspecified; Z79.899 Other long term (current) drug therapy; Z79.01 Long term (current) use of anticoagulants

== ENCOUNTER → 2019-08-05 | Outpatient (CLI) | payer OTHER | LOC: M.PC 05:13 | DX: M54.5 Low back pain (principal); E11.9 Type 2 diabetes mellitus without complications ==

== ENCOUNTER → 2019-10-19 | Outpatient (CLI) | payer OTHER ==
[~2019-10-19] MED LIST changes: +PLAVIX 75 MG TA75 MG PO; +PRINIVIL40 MG PO
--- NOTE | ~2019-10-19 | PAINCON ---
[address] [address] PAIN MANAGEMENT CONSULTATION Name: BOB BLAIR Room: [facility] BelindaMarlon#: [id number] Admission: 10/19/19 Attend Phys: Mercedes Pino MD Discharge: Date of : 54 Report #: [id number] THIS REPORT FOR: //name// CC: SHIVA Barillas DATE OF SERVICE: 10/19/2019 PRIMARY CARE PHYSICIAN: Shiva Wilson DO CHIEF COMPLAINT: Chronic knee pain with back pain. HISTORY: The patient is a 69-year-old female who has been followed in the Pain Clinic because of chronic pain. She is having pain in the low back area. She has pain in her right knee. Because of the pain in her knee, it altered her ambulation. She noticed increased pain in the low back area on the lower portion of her back in the left near her hip. She has been using Tylenol type medications. She has used aspirin type medications in the past and states that her renal function fell precipitously. She has been asked not to use nonsteroidal anti-inflammatory medications. She rates her pain as a 5/10. She continues to work at [employer]. She has noticed an increased number of people coming in with respiratory diseases and coughing. She is having a bit of a respiratory event at this juncture. She feels overall that her medications are helpful and would like to continue their use. ALLERGIES: No known drug allergies. CURRENT MEDICATIONS: Lipitor 40 mg, B complex, Coreg 25 mg b.i.d., Benadryl 25 mg, Colace 100 mg, Lasix 20 mg, Neurontin 300 mg at bedtime, Amaryl 2 mg at bedtime, hydrocodone/acetaminophen 10325, Synthroid 137 mcg, potassium 20 mEq, Entresto 49/51, Zoloft 50 mg, Restoril 30 mg, Brilinta 90 mg b.i.d., Zanaflex 4 mg t.i.d., vitamin B12 1000 mcg intramuscularly monthly, vitamin D3 1000 units daily. PAIN CLINIC ASSESSMENT AND PQRS: 1. The patient has some pain and discomfort in her left as well as her right hip. She has pain in the right knee. The patient is not being treated for rheumatoid arthritis. 2. Height 5 feet 6 inches, weight 254 pounds, BMI is 41. 3. Vital signs: Blood pressure 172/99, second blood pressure 158/102, temperature 98.7. 4. Respiratory rate 18, room air saturation 97%. 5. Pain intensity 10. 6. Fall history: The patient has not fallen in the last 3 months. 7. Blood thinner: The patient is not on [place] [address] PAIN MANAGEMENT CONSULTATION Name: BLAIRBOB Room: [facility]#: [id number] Admission: 10/19/19 Attend Phys: Mercedes Pino MD Discharge: Date of : 54 Report #: [id number] 8. Hypertension. The patient is being treated for hypertension. 9. Opioids greater than 6 weeks. The patient received medication from one source, Pain Clinic. 10. Risk assessment tool, low for opioid use. 11. Functional assessment tool reviewed. 12. Recreational drug use: The patient denies. 13. Tobacco: The patient denies. 14. Alcohol: The patient rarely drinks alcoholic beverages. PHYSICAL EXAMINATION: GENERAL: The patient is a well-developed, well-nourished white female. Appears her stated age. She is alert. She is obese. Her affect is appropriate. Speech is fluent. HEENT: Normocephalic, atraumatic. Extraocular eye muscles intact. Sclerae nonicteric. Mucous membranes are moist. The patient is having some upper respiratory symptoms. NECK: Without adenopathy or JVD. ABDOMEN: Protuberant. Bowel sounds present. HEART: Regular rate. MUSCULOSKELETAL: Upper extremity muscle strength judged to be 5/5. Lower extremity, the patient has pain and discomfort in the right knee. Has pain in the low portion of her back on the left side as well as the right side. The patient walks with slight antalgic gait. IMPRESSION: 1. Recent myocardial infarct with stent placements. 2. Ejection fraction 30-35%. 3. Right knee and leg pain. 4. Left hip pain. 5. Hypothyroidism due to Melvi's thyroiditis. 6. Vitamin C deficiency. 7. Primary insomnia. 8. Type 2 diabetes. 9. Essential hypertension. 10. Iron deficiency anemia. RECOMMENDATIONS: We discussed treatment options with the patient. At this juncture, we will continue with her medications. She finds that the opioid medications are helpful. She would like to continue their use. She is aware that opioid medications can be problematic in certain people. She does not show any signs of addiction. A script for her medications has been written. She will call us if she has any problems with her medications. She has noticed that her blood pressure has been a bit high. She is taking cold medications. We explained that cold medications can cause some patients with hypertension to exhibit an elevated blood pressure. She will continue to monitor her respiratory condition. She will call her primary physician should she have any [address] [place] [address] PAIN MANAGEMENT CONSULTATION Name: BOB BLAIR [facility] [id number] Admission: 10/19/19 Attend Phys: Mercedes Pino MD Discharge: Date of : 54 Report #: [id number] additional concerns. We would like to thank you for letting us participate in her care. We hope she continues to improve. By: [id number]. Isaak Pino MD /nt
== END ==
LOC: M.PC 08:30
DX: M25.561 Pain in right knee (principal); M79.604 Pain in right leg; I25.2 Old myocardial infarction; E03.9 Hypothyroidism, unspecified; E11.9 Type 2 diabetes mellitus without complications; I10 Essential (primary) hypertension; D64.9 Anemia, unspecified

== ENCOUNTER → 2019-12-14 | Outpatient (CLI) | payer OTHER ==
--- NOTE | 2019-12-22 08:25 | PAINCON ---
[address] [address] PAIN MANAGEMENT CONSULTATION Name: BOB BLAIR Room: [facility] Govind.#: [id number] Admission: 12/14/19 Attend Phys: Mercedes Pino MD Discharge: Date of : 54 Report #: [id number] THIS REPORT FOR: //name// cc: Consuelo Wilson Linda J. DO THIS REPORT FOR: //name// CC: Consuelo Salcedo DATE OF SERVICE: 12/14/2019 CHIEF COMPLAINT: Knee and continued back pain. HISTORY: The patient is a 69-year-old female who has been followed in the pain clinic because of chronic pain. She has a history of low back pain. She continues to work at [employer]. She has had her job assignment changed. It is somewhat more physical in nature. 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 This increased motion and activity has increased her pain. She feels overall that her pain continues to be about 50% improved with her current medications. She notes that walking, standing, sitting, climbing and bending have exacerbated the pain and discomfort. Weather changes have influenced her pain as well. She rates her pain as a 5-6/10. Also, has pain in her right knee, which has been replaced. ALLERGIES: No known drug allergies. CURRENT MEDICATIONS: Lipitor 40 mg, vitamin B complex, Coreg 25 mg b.i.d., Benadryl 25 mg, Colace 100 mg, Lasix 20 mg, Neurontin 300 mg at bedtime, Amaryl 2 mg at bedtime, hydrocodone 10/325, Synthroid 137 mcg, potassium 20 mEq, Entresto 49/41, Zoloft 50 mg, Restoril 30 mg, Brilinta 90 mg b.i.d., Zanaflex 4 mg t.i.d., vitamin B12 100 mcg intramuscular monthly, vitamin D 1000 units daily. PAIN CLINIC ASSESSMENT AND PQRS: 1. The patient does have some pain and discomfort in her left as well as in her right hip. Does have pain in the right knee. She is not being treated for rheumatoid arthritis. 2. Height 5 feet 6 inches, weight 257 pounds. 3. Vital Signs: Blood pressure 158/82, heart rate 65, respiratory rate 16, room air saturation 97%, temperature 97.4. 4. Pain intensity 5-6/10. 5. Fall history: The patient has not fallen in the last 3 months. 6. Blood thinner. The patient is not on a blood thinning medication. 7. Hypertension. The patient is [place] [address] PAIN MANAGEMENT CONSULTATION Name: BOB BLAIR Room: [facility]#: [id number] Admission: 12/14/19 Attend Phys: Mercedes Pino MD Discharge: Date of : 54 Report #: [id number] 8. Opioids greater than 6 weeks. The patient received medication from one source the pain clinic. 9. Risk assessment tool, low for opioid use. 10. Functional assessment tool. 11. Recreational drug use: The patient denies. 12. Tobacco: The patient denies. 13. Alcohol: The patient rarely drinks alcoholic beverages. PHYSICAL EXAMINATION: GENERAL: The patient is a well-developed, well-nourished, somewhat obese white female. Appears her stated age. She is alert and oriented x 3. Her affect is appropriate. Speech is fluent. HEENT: Normocephalic, atraumatic. Extraocular eye muscles intact. Sclerae nonicteric. Mucous membranes are moist. NECK: Without adenopathy or JVD. HEART: Regular rate. ABDOMEN: Protuberant. MUSCULOSKELETAL: Upper extremity muscle strength judged to be 5/5 for the major muscle groups in the upper extremity. The patient has some pain and discomfort in her right knee. Has pain in the lower portion of her back. Slight antalgic gait. IMPRESSION: 1. Recent myocardial infarct with stent placement, now chronically anticoagulated. 2. Ejection fraction 30%-35%. 3. Right knee and leg pain. 4. Left hip pain. 5. Hypothyroidism due to Melvi's thyroiditis. 6. Vitamin C deficiency. 7. Primary insomnia. 8. Type 2 diabetes. 9. Essential hypertension. 10. Iron deficiency anemia. RECOMMENDATIONS: We discussed treatment options with the patient. At this juncture, we will continue with her medications. Feels that her pain medications provide about 50% improvement in her pain. This allows her to stay gainfully employed. Continues to work at [employer]. Notes that bending and lifting and twisting and the changes in her work title have increased her pain and discomfort, but is helped with her current medications of hydrocodone, gabapentin and tizanidine. She notes that she is not having any problems with the medication. She is aware that these medications in certain people can cause addiction. She has not shown any signs of addiction. She would like to continue with hydrocodone 10/325 one p.o. t.i.d. as will be used. A script for the next 2 months have been provided. The patient will also continue with [address] [address] PAIN MANAGEMENT CONSULTATION Name: BOB BLAIR Room: [facility]#: [id number] Admission: 12/14/19 Attend Phys: Mercedes Pino MD Discharge: Date of : 54 Report #: [id number] gabapentin 300 mg at bedtime. She will continue with tizanidine 4 mg 1 p.o. t.i.d. She states that her medications are not causing any confusion. She is able to think clearly. She will follow up in the near future. <ELECTRONICALLY SIGNED> By: Mercedes Pino MD 12/22/19 0825 1359 [id number]. Isaak Pino MD /nt
== END ==
LOC: M.PC 04:21
DX: M25.561 Pain in right knee (principal); M25.562 Pain in left knee; M54.5 Low back pain; E11.9 Type 2 diabetes mellitus without complications; E54 Ascorbic acid deficiency; Z79.899 Other long term (current) drug therapy

== ENCOUNTER → 2020-02-08 | Outpatient (CLI) | payer OTHER ==
[~2020-02-08] MED LIST changes: +HYDRALAZINE 2525 MG PO; +NEURONTIN300 MG PO
--- NOTE | 2020-02-09 22:33 | PAINCON ---
[address] [address] PAIN MANAGEMENT CONSULTATION Name: BOB BLAIR Room: [facility] Govind.#: [id number] Admission: 02/08/20 Attend Phys: Mercedes Pino MD Discharge: Date of : 54 Report #: [id number] THIS REPORT FOR: //name// cc: Consuelo Wilson Linda J. DO ~ THIS REPORT FOR: //name// CC: Consuelo Pino DATE OF SERVICE: 02/08/2020 CHIEF COMPLAINT: Back and leg pain. HISTORY: The patient is a 69-year-old female who has been followed in the pain clinic. As you may recall, she continues to have pain, which involves her back. She has knee pain as well. She continues to work at [employer]. Because of the COVID-19 pandemic her job has become more problematic. 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 Prolonged standing exacerbates her discomfort. She states that she stands on her feet all day. She feels that the medications continue to be helpful. She would like to continue with their use. She was an inpatient at [facility]. They determined that her potassium was too high. Her release coordinator saw her in the hospital. She had complaints of shortness of breath and weakness. She was in the hospital for 2-3 days. There was some worry about her kidney function. She has an appointment to see a propellant charge zone assembler soon. ALLERGIES: No known drug allergies. CURRENT MEDICATIONS: Lipitor 40 mg, vitamin B complex, Coreg 25 mg b.i.d., Benadryl 25 mg, Colace 100 mg, Lasix 20 mg, Neurontin 300 mg at bedtime, Amaryl 2 mg at bedtime, hydrocodone 10/325, Synthroid 137 mcg, potassium 20 mEq was used in the past, Entresto 49/41, Zoloft 50 mg, Restoril 30 mg, Brilinta 90 mg b.i.d., Zanaflex 4 mg t.i.d., vitamin B12 100 mcg intravascular monthly and vitamin D 1000 units. PAIN CLINIC ASSESSMENT AND PQRS: 1. The patient has some pain and discomfort in her left as well as in her right hip. She has pain in her right knee. She is not being treated for rheumatoid arthritis. 2. Height 5 feet 6 inches, weight 252 pounds, BMI is 40. 3. Vital Signs: Blood pressure 177/84, second blood pressure 145/76, heart rate 70, respiratory rate 16, room air saturation 96%, temperature 98.3. 4. Pain intensity is 5/10. 5. Fall history: The patient has not fallen in the last 3 months. 6. Blood thinner. The patient is on a blood thinning [place] [address] PAIN MANAGEMENT CONSULTATION Name: ROSSYBOB Cardozo Room: [facility]#: [id number] Admission: 02/08/20 Attend Phys: Mercedes Pino MD Discharge: Date of : 54 Report #: [id number] 7. Hypertension. The patient is being treated for hypertension. 8. Opioids greater than 6 weeks. The patient received medication from the pain clinic. 9. Risk assessment tool, low for opioid use. 10. Functional assessment tool reviewed. 11. Recreational drug use. The patient denies. 12. Tobacco: The patient denies. 13. Alcohol: The patient rarely drinks alcoholic beverages. PHYSICAL EXAMINATION: GENERAL: The patient is a well-developed, well-nourished, somewhat obese white female. She appears her stated age. She is alert and oriented x 3. Her affect is appropriate. Speech is fluent. The patient is wearing a mask. NECK: Without adenopathy. HEART: Regular. ABDOMEN: Protuberant. MUSCULOSKELETAL: Upper extremity muscle strength judged to be 5/5 for the major muscle groups in the upper extremity. The patient complains of some low back pain. Has some right knee pain. Also, complains of some pain in her feet with prolonged standing. IMPRESSION: 1. Myocardial infarct in the past with stent placement, now chronically treated with Brilinta. 2. Ejection fraction of 30% - 35%. 3. Right knee and leg pain. 4. Left hip pain. 5. Hypothyroidism due to Melvi's thyroiditis. 6. Vitamin C deficiency. 7. Primary insomnia. 8. Type 2 diabetes. 9. Essential hypertension. 10. Iron deficiency anemia. 11. Hospitalization secondary to hyperkalemia. RECOMMENDATIONS: We discussed treatment options with the patient. At this juncture, we will continue with her medications. A script for her medications have been provided. She will continue with hydrocodone 10/325 one p.o. t.i.d. She will also continue with gabapentin. She finds that tizanidine is helpful. The patient states that she may have changed her shoes because of the pain associated with chronic standing. She will also consider the use of compression stockings. We would like to thank you for letting us participate in her care. She feels the medications continue to be helpful. She is aware that they may become less effective as time goes on secondary to development of tolerance. [facility] [address] [place] [address] PAIN MANAGEMENT CONSULTATION Name: BOB BLAIR Room: [facility].#: [id number] Admission: 02/08/20 Attend Phys: Mercedes Pino MD Discharge: Date of : 54 Report #: [id number] We would like to thank you for letting us participate in her care. We hope she continues to improve. <ELECTRONICALLY SIGNED> By: Mercedes Pino MD 02/09/20 2233 1105 1425N. Isaak Pino MD /nt
== END ==
LOC: M.PC 05:02
DX: M54.5 Low back pain (principal); M25.561 Pain in right knee; M25.552 Pain in left hip; E03.9 Hypothyroidism, unspecified; E54 Ascorbic acid deficiency; D50.9 Iron deficiency anemia, unspecified; E87.6 Hypokalemia; I10 Essential (primary) hypertension; E11.9 Type 2 diabetes mellitus without complications; G47.09 Other insomnia; Z79.899 Other long term (current) drug therapy

== ENCOUNTER → 2020-04-04 | Outpatient (CLI) | payer OTHER ==
[~2020-04-04] MED LIST changes: +MEDROLDOSEPACK PO
--- NOTE | 2020-04-05 11:31 | PAINCON ---
[address] [address] PAIN MANAGEMENT CONSULTATION Name: BLAIRBOB Room: [facility] Govind.#: [id number] Admission: 04/04/20 Attend Phys: Mercedes Pino MD Discharge: Date of : 54 Report #: [id number] THIS REPORT FOR: //name// cc: Consuelo Wilson Linda J. DO ~ THIS REPORT FOR: //name// CC: Consuelo Pino DATE OF SERVICE: 04/04/2020 PRIMARY CARE PHYSICIAN: Consuelo Wilson DO CHIEF COMPLAINT: Low back pain and some shortness of air. HISTORY: The patient is a 69-year-old female who has been followed in the pain clinic because of chronic back pain. She rates her pain today as a 5/10. She feels that the gabapentin medication is helpful. She feels that ____ increasing this medication might be helpful and she would like to consider it. She has been having some cramping in her legs at times. She has some concerns about her kidney function. She is being followed by her primary in that regard. 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 There is some difficulty in customers who declined use of facemask. This is somewhat stressful at times. The patient's pain is worse when walking, sitting, standing, climbing stairs, lifting and bending. She feels that her medications as well as heat can be beneficial. She does have an area on her left flank which is somewhat irritated. She has had shingles in the past and she is wondering whether or not this might be out an outbreak of shingles. ALLERGIES: No known drug allergies. CURRENT MEDICATIONS: Lipitor 40 mg, vitamin B complex, Coreg 25 mg b.i.d., Benadryl 25 mg, Colace 100 mg, Lasix 20 mg, Neurontin 300 mg at bedtime, Amaryl 2 mg at bedtime, hydrocodone 10/325, Synthroid 137 mcg, potassium 20 mEq was used in the past, Entresto 49/41, Zoloft 50 mg, Restoril 30 mg, Brilinta 90 mg b.i.d., Zanaflex 4 mg t.i.d., vitamin B12 100 mcg intravascular monthly and vitamin D 1000 units. PAIN CLINIC ASSESSMENT AND PQRS: 1. The patient has some pain and discomfort in her left as well as in her right hip. She has pain in her right knee. She is not being treated for rheumatoid arthritis. 2. Height 5 feet 6 inches, weight 257 pounds, BMI is 41.1. 3. Vital Signs: Blood pressure 165/87, heart rate 76, respiratory rate 16, room air saturation is 97%, temperature 97.5. [place] [address] PAIN MANAGEMENT CONSULTATION Name: BOB BLAIR Juliane [id number] Admission: 04/04/20 Attend Phys: Mercedes Pino MD Discharge: Date of : 54 Report #: [id number] 4. Fall history: The patient has not fallen in the last 3 months. 5. Blood thinner. The patient is on a blood thinning medication, Brilinta. 6. Hypertension. The patient is being treated for hypertension. 7. Opioids greater than 6 weeks. The patient receives medications from the pain clinic. 8. Risk assessment tool, low for opioid use. 9. Functional assessment tool, reviewed. 10. Recreational drug use. The patient denies. 11. Tobacco: The patient denies. 12. Alcohol: The patient rarely drinks an alcoholic beverage. PHYSICAL EXAMINATION: GENERAL: The patient is a well-developed, well-nourished, somewhat obese white female. Appears her stated age. She is alert and oriented x 3. Her affect is appropriate. Speech is fluent. HEENT: Normocephalic, atraumatic. Extraocular eye muscles intact. Sclerae nonicteric. Mucous membranes are moist. The patient is wearing a mask. NECK: Without adenopathy. HEART: Regular rate. LUNGS: Generally clear. ABDOMEN: Protuberant. MUSCULOSKELETAL: Upper extremity muscle strength judged to be 5/5 for the major muscle groups in the upper extremity. The patient complains of some low back pain. Has some pain in her right knee. Also, complains of pain in her feet with prolonged standing. She has an excess skin. The patient has an area on her left flank with a slight rash which involves the proximally T10 dermatomal distribution. It is somewhat wide in size. There are no vesicles noted. There does seem to be some dry areas of skin in this area, which may be secondary to some rash. IMPRESSION: 1. History of myocardial infarct with stent placements, now chronically treated with Brilinta. 2. Ejection fraction 30-35%. 3. Right knee and leg pain. 4. Left rash at approximately T10 dermatomal distribution, which is somewhat wide and involves the left flank area. 5. Hypothyroidism due to Melvi's thyroiditis. 6. Vitamin C deficiency. 7. Primary insomnia. 8. Type 2 diabetes. 9. Essential hypertension. 10. Iron deficiency anemia. 11. Hospitalization after hyperkalemia. RECOMMENDATIONS: We discussed treatment options with the patient. At this [facility] [address] [place] [address] PAIN MANAGEMENT CONSULTATION Name: BOB BLAIR Room: [facility]#: [id number] Admission: 04/04/20 Attend Phys: Mercedes Pino MD Discharge: Date of : 54 Report #: [id number] juncture, we will continue with her medications. A script for gabapentin 300 mg 1 p.o. b.i.d. will be used. Hopefully, she will notice an improvement in her pain. She will also continue with hydrocodone 10/325 one p.o. t.i.d. as needed. She will be provided a Medrol Dosepak. Hopefully, she will find this medication helpful with the rash on the side wall. I am not sure that it is shingles, but she does state that there is an itching and burning quality to it. She will notice her blood sugars after use of the Medrol Dosepak. We would like to thank you for letting us participate in her care. We hope she continues to improve. <ELECTRONICALLY SIGNED> By: Mercedes Pino MD 04/05/20 1131 1412 T: 07/5N. Isaak Pino MD /PMT
== END ==
LOC: M.PC 04:58
PROVIDERS: ATTEND Anesthesiology Pain Medicine
DX: M54.5 Low back pain (principal); R06.02 Shortness of breath; M25.561 Pain in right knee; R20.2 Paresthesia of skin; E03.9 Hypothyroidism, unspecified; E54 Ascorbic acid deficiency; G47.00 Insomnia, unspecified; E11.9 Type 2 diabetes mellitus without complications; I10 Essential (primary) hypertension; D50.9 Iron deficiency anemia, unspecified; Z95.1 Presence of aortocoronary bypass graft; Z79.899 Other long term (current) drug therapy

== ENCOUNTER → 2020-07-11 | Outpatient (CLI) | payer OTHER ==
--- NOTE | ~2020-07-11 | PAINCON ---
[address] [address] PAIN MANAGEMENT CONSULTATION Name: BOB BLAIR Room: [facility] Govind.#: [id number] Admission: 07/11/20 Attend Phys: Mercedes Pino MD Discharge: Date of : 54 Report #: [id number] THIS REPORT FOR: //name// cc: Shiva Wilson Linda J. DO ~ THIS REPORT FOR: //name// CC: SHIVA Barillas DATE OF SERVICE: 07/11/2020 CHIEF COMPLAINT: The pain that is most problematic is the plantar fasciitis in the right foot. HISTORY: The patient is a 69-year-old female who has been followed in the Pain Clinic. She returns today for renewal of her medications. Her pain, which is most problematic today is the pain associated with her right foot. She has been experiencing plantar fasciitis. She also has back pain, which has been problematic for a number of years. She is also having some shortness of air. 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 She continues to work. She rates her pain as a 5/10. Pain, which is most problematic associated with walking, sitting, standing, climbing stairs, bending and lifting. She notes particular increase in pain with going from a sit to stand position to walking. This can be quite excruciating. States that she is going to see the [facility] in regards to shoes for her right plantar fasciitis. ALLERGIES: No known drug allergies. CURRENT MEDICATIONS: Lipitor 40 mg, ____ vitamin B complex, Coreg 25 mg b.i.d., Benadryl 25 mg, Colace 100 mg, Lasix 20 mg, Neurontin 300 mg at bedtime, Amaryl 2 tablets at bedtime, hydrocodone 10/325, Synthroid 137 mcg, potassium 20 mEq, Entresto 49/41, Zoloft 50 mg, Restoril 30 mg, Brilinta 90 mg b.i.d., Zanaflex 4 mg t.i.d., vitamin B12 100 mcg intravenous monthly and vitamin D 1000 units. PAIN CLINIC ASSESSMENT/PQRS: 1. The patient has some pain and discomfort in her left as well as her right hip. Also, has pain in her right knee. She is not being treated for rheumatoid arthritis. The patient has plantar fasciitis. 2. Height 5 feet 6 inches, weight 253 pounds, BMI is 41. 3. Blood pressure is 159/97, heart rate 70, respiratory rate 16, room air saturation 96%, temperature 98.0. 4. Pain intensity, 5/10. 5. Fall history: The patient has not fallen in the last 3 [place] [address] PAIN MANAGEMENT CONSULTATION Name: BOB BLAIR Room: [facility]#: [id number] Admission: 07/11/20 Attend Phys: Mercedes Pino MD Discharge: Date of : 54 Report #: [id number] 6. Blood thinner. The patient is on a blood thinning medication Brilinta. 7. Hypertension. The patient is being treated for hypertension. 8. Opioids greater than 6 weeks. The patient received medication from the Pain Clinic. 9. Risk assessment tool, low for opioid use. 10. Functional assessment tool reviewed. 11. Recreational drug use. The patient denies. 12. Tobacco: The patient denies. 13. Alcohol: The patient rarely drinks alcoholic beverages. PHYSICAL EXAMINATION: GENERAL: The patient is a well-developed, well-nourished, somewhat obese white female, appears her stated age. She is alert and oriented x 3. Her affect is appropriate. Speech is fluent. HEENT: Normocephalic, atraumatic. Extraocular eye muscles intact. The patient is wearing a facial covering. NECK: Without adenopathy. HEART: Regular rate. LUNGS: Generally clear. ABDOMEN: Protuberant. MUSCULOSKELETAL: Upper extremity muscle strength is judged to be 5-/5 for the major muscle groups in the upper extremity. The patient has pain and discomfort in her right knee. Complains of pain in her feet. Notes that the right foot has symptoms consistent with plantar fasciitis. IMPRESSION: 1. Right foot plantar fasciitis. 2. History of myocardial infarct with stent placements and chronically treated with Brilinta. 3. Ejection fraction, 30-35%. 4. Right knee and leg pain. 5. Left ____. 6. Hypothyroidism due to Melvi's thyroiditis. 7. Vitamin C deficiency. 8. Primary insomnia. 9. Type 2 diabetes. 10. Essential hypertension. 11. Iron deficiency anemia. RECOMMENDATIONS: We discussed treatment options with the patient. At this juncture, we will renew the patient's medication. The patient will continue with gabapentin 300 mg 1 p.o. b.i.d. She will also continue with hydrocodone 10/325 one p.o. t.i.d. The patient will continue with tizanidine 4 mg t.i.d. for muscle spasms. We discussed the problems with plantar fasciitis. It could be quite a difficult entity to bring under control. We explained to the patient that she should wear stiff shoes at all times. Possibility of injections in the [facility] [address] [place] [address] PAIN MANAGEMENT CONSULTATION Name: BOB BLAIR Room: [facility] Ludwin#: [id number] Admission: 07/11/20 Attend Phys: Vimal. Isaak Pino MD Discharge: Date of : 54 Report #: [id number] future might be an option. Hopefully, the patient will find that shoes which she feels might be provided/directed through [facility] would be helpful in decreasing the plantar fasciitis. We hope she continues to improve. A script for her medications have been provided. She will continue with the medications as prescribed above. By: [id number]. Isaak Pion MD /nt
== END ==
LOC: M.PC 09:40
PROVIDERS: ATTEND Anesthesiology Pain Medicine
DX: M72.2 Plantar fascial fibromatosis (principal); D50.9 Iron deficiency anemia, unspecified; I10 Essential (primary) hypertension; E11.9 Type 2 diabetes mellitus without complications; E64.2 Sequelae of vitamin C deficiency; G47.00 Insomnia, unspecified; E03.9 Hypothyroidism, unspecified; E06.9 Thyroiditis, unspecified; M25.561 Pain in right knee; I25.2 Old myocardial infarction

== ENCOUNTER → 2020-09-05 | Outpatient (CLI) | payer OTHER | LOC: M.PC 09:58 | PROVIDERS: ATTEND Anesthesiology Pain Medicine | DX: M72.2 Plantar fascial fibromatosis (principal); M25.561 Pain in right knee; D50.9 Iron deficiency anemia, unspecified; I10 Essential (primary) hypertension; E11.9 Type 2 diabetes mellitus without complications; G47.00 Insomnia, unspecified; E54 Ascorbic acid deficiency; E03.9 Hypothyroidism, unspecified ==

== ENCOUNTER → 2020-12-19 | Outpatient (CLI) | payer OTHER | LOC: M.PC 09:14 | PROVIDERS: ATTEND Anesthesiology Pain Medicine | DX: M72.2 Plantar fascial fibromatosis (principal); E03.9 Hypothyroidism, unspecified; E11.9 Type 2 diabetes mellitus without complications; I10 Essential (primary) hypertension; E54 Ascorbic acid deficiency; D50.9 Iron deficiency anemia, unspecified; G47.00 Insomnia, unspecified; M79.604 Pain in right leg; M25.561 Pain in right knee ==

== ENCOUNTER → 2021-02-13 | Outpatient (CLI) | payer OTHER ==
[~2021-02-13] MED LIST changes: +ASA81BEC PO; +BARIATRIC MV-I1 EACH PO
== END ==
LOC: M.PC 09:00
PROVIDERS: ATTEND Anesthesiology Pain Medicine
DX: M72.2 Plantar fascial fibromatosis (principal); M54.31 Sciatica, right side; I42.9 Cardiomyopathy, unspecified; E11.9 Type 2 diabetes mellitus without complications; I25.2 Old myocardial infarction; Z95.5 Presence of coronary angioplasty implant and graft; E03.8 Other specified hypothyroidism; F51.01 Primary insomnia; E54 Ascorbic acid deficiency; D50.9 Iron deficiency anemia, unspecified; I10 Essential (primary) hypertension; M25.561 Pain in right knee; Z88.8 Allergy status to other drugs, medicaments and biological substances; Z68.41 Body mass index [BMI] 40.0-44.9, adult; Z79.891 Long term (current) use of opiate analgesic; Z79.899 Other long term (current) drug therapy

== ENCOUNTER → 2021-03-15 | Outpatient (CLI) | payer OTHER | LOC: M.MRI 08:15 | PROVIDERS: ATTEND Family Medicine | DX: M47.816 Spondylosis without myelopathy or radiculopathy, lumbar region (principal); M43.16 Spondylolisthesis, lumbar region; M77.8 Other enthesopathies, not elsewhere classified; M48.061 Spinal stenosis, lumbar region without neurogenic claudication ==

== ENCOUNTER → 2021-03-22 | Outpatient (CLI) | payer OTHER ==
[~2021-03-22] MED LIST changes: +.
== END | disposition home or self-care (01) ==
LOC: M.PC 08:53
PROVIDERS: ATTEND Anesthesiology Pain Medicine
DX: M51.36 Other intervertebral disc degeneration, lumbar region (principal); M72.2 Plantar fascial fibromatosis; I10 Essential (primary) hypertension; E11.9 Type 2 diabetes mellitus without complications; E03.9 Hypothyroidism, unspecified; F51.01 Primary insomnia; D50.9 Iron deficiency anemia, unspecified; I25.2 Old myocardial infarction; Z98.890 Other specified postprocedural states; Z79.899 Other long term (current) drug therapy; Z88.8 Allergy status to other drugs, medicaments and biological substances

== ENCOUNTER → 2021-05-22 | Outpatient (CLI) | payer OTHER | LOC: M.PC 04-10 08:30 | PROVIDERS: ATTEND Anesthesiology Pain Medicine | DX: M54.31 Sciatica, right side (principal); E11.9 Type 2 diabetes mellitus without complications; G89.29 Other chronic pain; I42.9 Cardiomyopathy, unspecified; I25.2 Old myocardial infarction; E03.9 Hypothyroidism, unspecified; E06.3 Autoimmune thyroiditis; E54 Ascorbic acid deficiency; M25.561 Pain in right knee; M79.604 Pain in right leg; F51.01 Primary insomnia; I10 Essential (primary) hypertension; D50.9 Iron deficiency anemia, unspecified; M72.2 Plantar fascial fibromatosis; M54.5 Low back pain; M54.16 Radiculopathy, lumbar region; Z79.891 Long term (current) use of opiate analgesic; Z79.899 Other long term (current) drug therapy; Z88.8 Allergy status to other drugs, medicaments and biological substances; Z98.890 Other specified postprocedural states ==

== ENCOUNTER → 2021-07-17 | Outpatient (CLI) | payer OTHER | LOC: M.PC 08:58 | PROVIDERS: ATTEND Anesthesiology Pain Medicine | DX: M72.2 Plantar fascial fibromatosis (principal); M25.561 Pain in right knee; E03.8 Other specified hypothyroidism; E54 Ascorbic acid deficiency; M54.31 Sciatica, right side; F51.01 Primary insomnia; E11.9 Type 2 diabetes mellitus without complications; I10 Essential (primary) hypertension; D50.9 Iron deficiency anemia, unspecified; M47.26 Other spondylosis with radiculopathy, lumbar region; M47.27 Other spondylosis with radiculopathy, lumbosacral region; Z79.899 Other long term (current) drug therapy; Z90.49 Acquired absence of other specified parts of digestive tract; Z88.8 Allergy status to other drugs, medicaments and biological substances; Z79.82 Long term (current) use of aspirin; Z79.84 Long term (current) use of oral hypoglycemic drugs ==